=== PATIENT | male | born 1990 | race Caucasian/White ===

== ENCOUNTER 2016-11-12 13:54 | Day surgery (SDC) | payer OTHER ==
[~2016-11-12] VITALS: Ht 175.3 cm; Wt 59.0 kg
--- NOTE | ~2016-11-12 | H ---
[facility] [place] [address] HISTORY AND PHYSICAL Name: JUAN A KELSEY Room #: [facility] M.Mateo.#: [id number] Admission: 11/12/16 Attend Phys: Trino Butler MD Discharge: 11/12/16 Date of : 88 Report #: [id number] THIS REPORT FOR: //name// CC: [facility] physician/PCP Trino Butler DATE OF SERVICE: 11/12/2016 CHIEF COMPLAINT: Right leg pain. BRIEF HISTORY OF PRESENT ILLNESS: The patient is a 25-year-old gentleman who was cutting a branch with a chainsaw. It kicked back and struck his right lower leg. He was evaluated in the Emergency Department. The laceration was inspected, and I was consulted for a more aggressive debridement and closure due to potential contamination and the deep nature of the wound. He does relate numbness on the dorsum of his foot. PAST MEDICAL HISTORY: Unremarkable. MEDICATIONS: None. ALLERGIES: None. SOCIAL HISTORY: Denies tobacco use. Social drinker. REVIEW OF SYSTEMS: CONSTITUTIONAL: Denies fever or chills. HEENT: He does relate he has had a sore throat and pain with swallowing. RESPIRATORY: No cough. CARDIOVASCULAR: No chest pain. GASTROINTESTINAL AND GENITOURINARY: Denies any other symptoms such as nausea, vomiting or dysuria. PHYSICAL EXAMINATION: GENERAL: Healthy-appearing male, in no acute distress. HEENT: EOMI. PER. NECK: Supple without lymphadenopathy. CHEST: Clear to auscultation bilaterally. COR: Regular rate and rhythm, without murmur. ABDOMEN: Soft and nontender. EXTREMITIES: Right lower extremity has an oblique laceration in anterolateral calf. It is into the muscle tissue. Diminished sensation in the dorsum of his foot, but he does appear to have sensation in the first web space. When he concentrates, he is able to fire his tibialis anterior and his extensor hallucis. He has intact pedal pulses. [facility] [address] [place] [address] HISTORY AND PHYSICAL Name: JUAN A KELSEY Room #: [facility].#: [id number] Admission: 11/12/16 Attend Phys: Trino Butler MD Discharge: 11/12/16 Date of : 88 Report #: [id number] IMAGING: X-rays of the leg demonstrate no osseous abnormality. Only soft tissue injury. IMPRESSION: Right leg laceration with probable injury to superficial peroneal nerve. PLAN: We will do a thorough irrigation and debridement today. Counseled the patient on the benefits, risks and outcomes of the procedure. We are doing it urgently. <ELECTRONICALLY SIGNED> By: Trino Butler MD 11/25/16 0652 [id number] Trino Butler MD /nt
--- NOTE | ~2016-11-12 | O ---
[facility] [place] [address] OPERATIVE REPORT Name: JUAN A KELSEY Room #: [facility] Gonz[place]lez#: [id number] Admission: 11/12/16 Attend Phys: Trino Butler MD Discharge: 11/12/16 Date of : 88 Report #: [id number] THIS REPORT FOR: //name// CC: [facility] physician/PCP Trino Butler DATE OF SERVICE: 11/12/2016 PREOPERATIVE DIAGNOSIS: Right leg deep laceration. POSTOPERATIVE DIAGNOSIS: Right leg deep laceration. PROCEDURE: Right leg irrigation and debridement of muscle and fascial tissue followed by loose primary closure of fascia and closure of the skin. SURGEON: Trino Butler M.D. ANESTHESIA: General. INDICATIONS: See hospital history and physical. I outlined at length to the patient our operative plan. He verbally consented for the procedure. DESCRIPTION OF PROCEDURE: After general anesthesia had been obtained, the patient's right lower extremity was prepped and draped in the usual meticulous sterile fashion. Despite it being a chainsaw wound, fortunately there was not a great deal of gross contamination. He did have some area of discolored skin that appeared nonviable along with significant fascial injury to the peroneus musculature. The unhealthy portion was debrided, and the wound was irrigated with 3 liters of pulse lavage irrigation followed by a liter of antibiotic irrigation. The wound was inspected closely once again, and meticulous hemostasis obtained. I did a loose fascial closure to help reapproximate the muscle tissue with 2-0 Vicryl. Subcutaneous was closed with 2-0 Monocryl, skin closed with yoli. Sterile compressive dressing applied, no tourniquet was utilized. <ELECTRONICALLY SIGNED> By: Trino Butler MD 11/25/16 0652 [id number] Trino Butler MD /nt
[2016-11-12 13:55] VITALS: BP 137/102
[2016-11-12 17:55] VITALS: BP 137/102
== END 2016-11-12 19:33 | disposition home or self-care (01) ==
LOC: OR 13:54 → ER 13:54 → OR 19:32 → TBA 19:36
DX: S81.811A Laceration without foreign body, right lower leg, initial encounter (principal); X58.XXXA Exposure to other specified factors, initial encounter; Y93.89 Activity, other specified; Y92.89 Other specified places as the place of occurrence of the external cause; Y99.8 Other external cause status
CPT/HCPCS: 50101; 50386; 51412; 53078; 57091; 62110; 62900; 70005